=== PATIENT | female | born 1970 | race Caucasian/White ===

== ENCOUNTER → 2018-02-21 10:32 | Outpatient (CLI) | payer OTHER, SELFPAY | PROVIDERS: Family Provider Family Medicine; PCP Family Medicine; Visit Provider Family Medicine | DX: Z12.31 Encounter for screening mammogram for malignant neoplasm of breast (principal) | CPT/HCPCS: 77063; 77067 ==

== ENCOUNTER → 2018-03-30 08:11 | Outpatient (CLI) | payer OTHER, SELFPAY ==
[2018-03-30 12:13] LABS: Absolute Lymphocyte Count 1.96 X10^3/ul (0.83-4.51); Absolute Neutrophil Count 2.8 X10^3/uL (2.0-7.7); Basophil# 0.02 X10^3/uL; Basophil% 0.4 % (0-1); Eosinophil# 0.15 X10^3/uL; Eosinophils% 2.8 % (0-5); Hematocrit 41.8 % (37-47); Hemoglobin 13.8 g/dl (12.0-15.0); Lymphocyte # 1.96 X10^3/ul (4.0); Lymphocyte % 36.4 % (19-41); Mean Corpuscular Hgb 30.3 pg (27.0-32.0); Mean Corpuscular Volume 91.7 fL (81-99); Mean Platelet Vol. 10.6 fl (6.2-12.0); Monocyte# 0.45 X10^3/uL; Monocyte% 8.3 % (0-10); Neutrophil % 51.9 % (47-70); Platelet Count 251 K/mm3 (150-450); RBC Distribution Width CV 12.6 % (11.6-14.6); RBC Distribution Width SD 41.1 fl (35.1-43.9); Red Blood Count 4.56 M/mm3 (4.2-5.4); White Blood Count 5.4 K/mm3 (4.4-11.0)
[2018-03-30 12:33] LABS: POSITIVE COUNT NO; POSITIVE DIFFERENTIAL NO; POSITIVE MORPHOLOGY NO
[2018-03-30 12:44] LABS: Vitamin D,25 Hydroxy 31.6 ng/mL (29.95-100.01)
[2018-03-30 12:47] LABS: ALB/GLOB Ratio 1.1 RATIO (0.9-2.4); AST(SGOT) 28 U/L (15-37); Alanine Aminotransfer ALT/SGPT 54 U/L (13-56); Albumin, Serum 3.9 g/dL (3.2-5.0); Alkaline Phosphatase 84 U/L (45-117); Anion Gap 8 (5-15); BUN 15 mg/dL (7-18); BUN/Creat Ratio 19.7 RATIO (10-20); Chloride 107 mmol/L (98-107); Cholesterol 262 mg/dL (200); Creatinine, Serum 0.76 mg/dL (0.55-1.02); EST Glomerular Filtration Rate 87 mL/min (>60); Est Glom Filt Rate - Afr Amer 105 mL/min (>60); Globulin 3.5 g/dL (2.2-4.2); Glucose 86 mg/dL (74-106); High Density Lipoprotein 46 mg/dL; Potassium 3.9 mmol/L (3.5-5.1); Protein, Total 7.4 g/dL (6.4-8.2); Sodium Level 141 mmol/L (136-145); Triglycerides 126 mg/dL; Very Low Density Lipoprotein 25 mg/dL (5-40)
== END ==
PROVIDERS: Family Provider Family Medicine; PCP Family Medicine; Visit Provider Family Medicine
DX: Z00.00 Encounter for general adult medical examination without abnormal findings (principal); E55.9 Vitamin D deficiency, unspecified; E78.5 Hyperlipidemia, unspecified
CPT/HCPCS: 36415; 80053; 80061; 82306; 85025

== ENCOUNTER → 2018-05-26 09:36 | Outpatient (CLI) | payer OTHER, SELFPAY ==
[2018-05-26 12:11] LABS: Luteinizing Hormone 28.6 mIU/mL
[2018-05-28 09:18] LABS: Testosterone Free 3.5 pg/mL (0.0-4.2)
--- OUTSIDE RECORDS SUMMARY | 2018-07-21 10:48 | XMS RPT_ITS ---
:1970 Author Organization [facility] Care Team Providers Name Role Phone BUD GALICIA, DR. SHAY Attending Unavailable URIEL DODR. [place] Primary Care Unavailable Chelsea Bertrand Attending Unavailable Yasmin Bertrandh Referring Unavailable Douglasel Chelsea Primary Care Unavailable Chelsea Bertrand Attending Unavailable Douglasel, Chelsea Primary Care Unavailable Chelsea Bertrand Attending Unavailable Jerzy, Chelsea Primary Care Unavailable PROBLEMS PROBLEMS DATE TYPE CONDITION / CODE ATTENDING STATUS SOURCE 05/26/2018 Unknown N95.1 - Miedel, Chelsea Active [place] Menopausal and [facility] climacteric Repository states / N95.1(ICD-10) 03/30/2018 Unknown Z00.00 - Miedel, Chelsea Active [place] Encounter for [facility] medical Repository examination without abnormal findings / Z00.00(ICD-10) 03/30/2018 Unknown E55.9 - Vitamin D Miedrl, Chelsea Active [place] deficiency, Community unspecified / Hospital E55.9(ICD-10) Repository 03/30/2018 Unknown E78.5 - Miedel, Chelsea Active [place] Hyperlipidemia, Community unspecified / Hospital E78.5(ICD-10) Repository PROCEDURES PROCEDURES No Procedure Records FoundRESULTS RESULTS FOLLICLE STIMULATING Collected: 05/26/2018 Status: F Source: [place] H[place]ONE 9:37 AM [facility] REPOSITORY TYPE CODE TESTS RESULT OUT OF RANGE REFERENCE UNITS LAB L3100.5125 mIU/mL Normal FSH 63.0 Result Comment: NORMAL REFERENCE RANGES FEMALE FOLLICULAR 2.3 - 12.6 mIU/mL MID-CYCLE PEAK 5.2 - 17.5 mIU/mL LUTEAL 1.7 - 12.9 mIU/mL POST-MENOPAUSAL ON MHT 5.9 - 72.8 mIU/mL NOT ON MHT 12.7 - 132.2 mlU/mL MALE 0.7 - 10.8 mIU/mL NEW TEST METHOD AND REFERENCE RANGES NOVEMBER 16, 2011 Performed By: #### L3100.5125, L3100.5170 #### [facility] [address] [place], [place], [address] LUTEINIZING HORMONE Collected: 05/26/2018 Status: F Source: [place] 9:37 AM [facility] REPOSITORY TYPE CODE TESTS RESULT OUT OF RANGE REFERENCE UNITS LAB L3100.5170 mIU/mL Normal LH 28.6 Result Comment: NORMAL REFERENCE RANGES FEMALE FOLLICULAR 1.9 - 26.2 mIU/mL MID-CYCLE PEAK 22.8 - 76.1 mIU/mL LUTEAL 0.6 - 16.6 mIU/mL POST-MENOPAUSAL ON MHT 1.1 - 52.4 mIU/mL NOT ON MHT 8.6 - 61.8 mIU/mL MALE 1.2 - 10.6 mIU/mL NEW TEST METHOD AND REFERENCE RANGES NOVEMBER 16, 2011 Performed By: #### L3100.5125, L3100.5170 #### [facility] [address] [place], [address] TESTOSTERONE FREE Collected: 05/26/2018 Status: F Source: [place] 9:37 AM [facility] REPOSITORY TYPE CODE TESTS RESULT OUT OF RANGE REFERENCE UNITS LAB L3400.4800 0.0-4.2 pg/mL Normal TEST FR 3.5 [id number] Result Comment: Performed at: BN - [facility] [address] [id number] Lead Radiation Therapist: Zuleyka Vazquez MD, Phone: [phone] Performed By: #### L3400.4800 #### [facility] (refer to report for specific site) refer to report for address and phone number CBC W/DIFF, AUTOMATED Collected: 03/30/2018 Status: F Source: [place] 8:13 AM [facility] REPOSITORY TYPE CODE TESTS RESULT OUT OF RANGE REFERENCE UNITS LAB L100.1000 4.4-11.0 K/mm3 Normal WBC 5.4 LAB L100.1200 4.2-5.4 M/mm3 Normal RBC 4.56 LAB L100.1300 12.0-15.0 g/dl Normal HGB 13.8 LAB L100.1400 37-47 % Normal HCT 41.8 LAB L100.1500 81-99 fL Normal MCV 91.7 LAB L100.1600 27.0-32.0 pg Normal MCH 30.3 LAB L100.1700 32-36 g/gl Normal MCHC 33.0 LAB L100.1810 11.6-14.6 % Normal RDW CV 12.6 LAB L100.1820 35.1-43.9 fl Normal RDW SD 41.1 LAB L100.1900 150-450 K/mm3 Normal PLT 251 LAB L100.2000 6.2-12.0 fl Normal MPV 10.6 LAB L100.2100 47-70 % Normal NEUT% 51.9 LAB L100.2200 19-41 % Normal LY% 36.4 LAB L100.2300 0-10 % Normal MONO% 8.3 LAB L100.2400 0-5 % Normal EO% 2.8 LAB L100.2500 0-1 % Normal BASO% 0.4 LAB L100.2550 0.0-0.9 % Normal IM GRAN % 0.200 Result Comment: IG% - Immature Granulocytes (promyelocytes, myelocytes and metamyelocytes) > 1% indicates that a LEFT SHIFT is Present. LAB L100.2620 2.0-7.7 X10 3/uL Normal Absolute Neut 2.8 LAB L100.2720 0.83-4.51 X10 3/ul Normal Absolute Lymph 1.96 Performed By: #### L100.0100 #### [facility] [address] [place], [address] VITAMIN D,25 HYDROXY Collected: 03/30/2018 Status: F Source: [place] 8:13 AM [facility] REPOSITORY TYPE CODE TESTS RESULT OUT OF RANGE REFERENCE UNITS LAB L506.1000 29.95-100.01 ng/mL Normal Vitamin D 31.6 25-OH Result Comment: Vitamin D 25(OH) Status Range Deficiency <20 ng/mL (50nmol/L) Insuffciency 20 - 30 ng/mL (50 - 75 nmol/L) Sufficiency 30 - 100 ng/mL (75 - 250 nmol/L) Toxicity >100 ng/mL (>250 nmol/L) Performed By: #### L506.1000 #### [facility] [address] [place], [address] COMPREHENSIVE METABOLIC Collected: 03/30/2018 Status: F Source: [place] [facility] 8:13 AM [facility] REPOSITORY TYPE CODE TESTS RESULT OUT OF RANGE REFERENCE UNITS LAB L501.0100 74-106 mg/dL Normal GLU 86 Result Comment: Please note revised GLUCOSE reference range effective 2017. LAB L501.1000 7-18 mg/dL Normal BUN 15 LAB L501.1100 0.55-1.02 mg/dL Normal CREAT,SERUM 0.76 Result Comment: The validity of the calculated GFR AND GFRAA in patients over 70 years has not been determined. Clinical correlation is essential. LAB L501.1110 >60 mL/min Normal EST GFR 87 Result Comment: Non- GFR Calc LAB L501.1115 >60 mL/min Normal EST GFR - AA 105 Result Comment: GFR Calc LAB L501.1300 10-20 RATIO Normal BUN/CRE 19.7 LAB L501.1500 6.4-8.2 g/dL T Normal PROT 7.4 LAB L501.1800 3.2-5.0 g/dL Normal ALB 3.9 LAB L501.1950 2.2-4.2 g/dL Normal GLOB 3.5 LAB L501.2000 0.9-2.4 RATIO Normal A/G 1.1 LAB L501.2200 8.5-10.1 mg/dL CA Normal 9.0 LAB L501.4100 15-37 U/L Normal AST 28 LAB L501.4305 45-117 U/L Normal ALK P 84 LAB L501.4405 13-56 U/L Normal ALT 54 LAB L501.4600 0.20-1.00 mg/dL T Normal BILI 0.50 LAB L501.5300 136-145 mmol/L NA Normal 141 LAB L501.5600 3.5-5.1 mmol/L K Normal 3.9 LAB L501.5900 98-107 mmol/L CL Normal 107 LAB L501.6100 21.0-32.0 mmol/L Normal CO2 26.0 LAB L501.6200 5-15 Normal GAP 8 Performed By: #### L500.4050, L500.4100 #### [facility] [address] [place], [address] LIPID PROFILE Collected: 03/30/2018 Status: F Source: [place] 8:13 AM [facility] REPOSITORY TYPE CODE TESTS RESULT OUT OF RANGE REFERENCE UNITS LAB L501.4900 200 mg/dL High CHOL 262 Result Comment: <200 mg/dL Desirable 200-240 mg/dL Borderline >240 mg/dL High Risk LAB L501.5000 mg/dL Normal TRIG 126 Result Comment: The drugs N-Acetylcysteine and Metamizole may falsely depress this assay. Serum Triglycerides Reference Interval Normal <150 mg/dL Borderline high 150 - 199 mg/dL High 200 - 499 mg/dL Very High > or = 500 mg/dL LAB L501.6400 mg/dL Normal HDL 46 Result Comment: The drugs N-Acetylcysteine and Metamizole may falsely depress this assay. Reference Range HDL <40 mg/dL Low HDL Cholesterol HDL >or= 60 mg/dL High HDL Cholesterol LAB L501.6500 0-130 mg/dL High LDL 191 LAB L501.6600 5-40 mg/dL Normal VLDL 25 Performed By: #### L500.4050, L500.4100 #### [facility] [address] [facility] [place], [place], [address] SCREENING MAMM (CAD), Observed: 02/21/2018 Status: F Source: [place] BIL 10:34 AM [facility] REPOSITORY [facility] Imaging Services [address] [place] [address] SCREENING MAMM (CAD), BILAT MR#: [id number] Acct: [id number] Name: MYLES MOSLEY Rep #: [id number] : 1970 F 47 From: Evin Alvarado MD PCP: Chelsea Bertrand MD Status: REG CL Study: SCREENING MAMM (CAD), BILAT Date of Exam: 02/21/18 Exam# [id number] Ordering Dr: Chelsea Bertrand MD MAMMOGRAPHY - BILATERAL SCREENING REASON FOR EXAM: Female, 47 years old. Routine annual screening examination. PERTINENT HISTORY: Non-contributory. TECHNIQUE: Digital bilateral breast yue (3D mammographic acquisition) in the CC and MLO projections. 2-D mediolateral oblique (MLO) and craniocaudad (CC) views of both breasts were obtained. CAD: Full Field Digital Mammography with Computer Added Detection was performed. COMPARISON: Comparison is made with prior study dated May 08, 2016 and December 10, 2014. FINDINGS: Breast Composition: The breasts are heterogeneously dense, which may obscure small masses. There are no dominant masses or suspicious calcifications. Stable benign-appearing bilateral axillary lymph nodes. No other significant abnormalities are identified. There has been no significant change since the prior study. BI/SCREENING MAMM (CAD), BILAT IMPRESSION: Stable bilateral screening mammogram. Yearly follow-up mammogram recommended. (A) ASSESSMENT CATEGORY: BIRADS Category 2: Benign. A letter regarding these results will be sent to the patient by the facility within 30 days. Approximately 10% of breast cancers are not detected by mammography. A normal mammogram should not delay biopsy of a clinically suspicious abnormality. [id number] Electronically Signed: Evin Alvarado MD at 11:33 EDT Tel [phone], Service support , CC: Chelsea Bertrand MD Psychiatric Security Nurse: Signed XR FOOT MINIMUM 3 Observed: 12/28/2017 Status: F Source: [facility] VIEWS LEFT 8:50 AM [facility] REPOSITORY ORIGINAL XR FOOT MINIMUM 3 VIEWS LEFT CLINICAL INDICATION: pain COMPARISON: None FINDINGS: There is mild deformity of the 4th metatarsal neck with an adjacent small bony density at the lateral aspect of the 4th metatarsal neck. This is probably from remote trauma, but clinical corre lation recommended to exclude an acute injury. Joint spaces are normally maintained. No soft tissue swelling is visible. IMPRESSION: Deformity at the 4th metatarsal neck appears likely be chronic, but clinical correlation is advised to exclude an acute injury. Interpreted By: Kirt Ulloa MD Preliminary Report By: Kirt Ulloa MD Electronically Signed By: Kirt Ulloa MD Dictated Date: 12/28/2017 8:54:59 AM Prelim Date: 12/28/2017 8:54:59 AM Sign Date: 12/28/2017 8:56:49 AM ALLERGIES ALLERGIES No Allergies Records FoundENCOUNTERS ENCOUNTERS ADMIT/DISCHARGE ACCOUNT NUMBER ADMITTING ENCOUNTER LOCATION SOURCE CLASS 05/26/2018 [id number] [facility] ding:BFHLAB Repository 03/30/2018 [id number] [facility] ding:BFHLAB Repository 02/21/2018 [id number] [facility] ding:OPBI Repository 12/28/2017/12/29/19 [id number] Emergency BBuilding:ER [place] [address] [facility] Repository PAYERS PAYERS ENCOUNTER GUARANTOR PAYER SUBSCRIBER SOURCE 05/26/2018 [facility]LES M [id number]:MEDICAL CRABTREEDOB: [id number] Number: Repository [place] [id number]: [id number] Date:[id number] BOX (CS) [address] [address]KD: 05/26/2018 Secondary NOT GIVENUNK [place] Insurance:SELF PAY [facility] Number: Effective Repository Date:2018-05-26 03/30/2018 MYLES Estrada Primary MYLES [place] [id number] Insurance:MEDICAL CRABTREEDOB: [facility] [id number], Number: Repository [place] [id number]: [id number] Date:[id number] BOX () [address] [place] [address]NM: 03/30/2018 Secondary NOT GIVENUNK [place] Insurance:SELF PAY [facility] Number: Effective Repository Date:2018-03-30 02/21/2018 MYLES M Primary MYLES Estrada [place] [id number] Insurance:MEDICAL CRABTREEDOB: [facility] [id number], Number: Repository [place] [id number]: [id number] Date:0712-59-83II BOX () [address] [place] [phone]: 02/21/2018 Secondary NOT GIVENUNK [place] Insurance:SELF PAY [facility] Number: Effective Repository Date:2018-02-16 12/28/2017 MYLES Estrada Primary MYLES [facility] CRABTREEDOB: Insurance:MEDICAL CRABTREEDOB: [facility] [address] [id number] Repository MARKET Number: [address] [place], [place] [id number] [place], [place] [address]Fzi: ([phone]) Date:2017-12-28 [id number]: () [id number] [phone] Name:HAIR MARTIN ()Tel: 000 [address], [place] [phone] (WP) [phone]:
== END ==
PROVIDERS: Family Provider Family Medicine; PCP Family Medicine; Visit Provider Family Medicine
DX: N95.1 Menopausal and female climacteric states (principal)
CPT/HCPCS: 36415; 83001; 83002; 84402

== ENCOUNTER → 2019-04-11 11:45 | Outpatient (CLI) | payer OTHER, SELFPAY ==
--- NOTE | 2019-04-11 11:49 | BI_ITS ---
MAMMOGRAPHY - BILATERAL SCREENING REASON FOR EXAM: Female, 48 years old. Routine annual screening examination. PERTINENT HISTORY: Non-contributory. TECHNIQUE: Digital bilateral breast jaye (3D mammographic acquisition) in the CC and MLO projections. 2-D mediolateral oblique (MLO) and craniocaudad (CC) views of both breasts were obtained. CAD: Full Field Digital Mammography with Computer Added Detection was performed. COMPARISON: Comparison is made with prior study dated February 21, 2018 and May 08, 2016. FINDINGS: Breast Composition: The breasts are heterogeneously dense, which may obscure small masses. There are no dominant masses or suspicious calcifications. Stable benign-appearing bilateral axillary. No other significant abnormalities are identified. There has been no significant change since the prior study. BI/SCREEN MAMM (CAD) W/JAYE BILAT IMPRESSION: Stable bilateral screening mammogram. Yearly follow-up mammogram recommended. (A) ASSESSMENT CATEGORY: BIRADS Category 2: Benign. A letter regarding these results will be sent to the patient by the facility within 30 days. Approximately 10% of breast cancers are not detected by mammography. A normal mammogram should not delay biopsy of a clinically suspicious abnormality. [id number] Electronically Signed: Evin Alvarado, at 14:11 EDT , Service support ,
== END ==
PROVIDERS: Family Provider Family Medicine; PCP Family Medicine; Referring Provider Family Medicine; Visit Provider Family Medicine
DX: Z12.31 Encounter for screening mammogram for malignant neoplasm of breast (principal)
CPT/HCPCS: 77063; 77067

== ENCOUNTER → 2020-04-19 | Outpatient (CLI) | payer OTHER, SELFPAY ==
[2020-04-27 14:31] LABS: HPV APTIMA, High Risk Negative (Negative)
== END | disposition home or self-care (01) ==
LOC: LABSPEC 14:29
PROVIDERS: PCP Family Medicine; Visit Provider Family Medicine
DX: Z12.4 Encounter for screening for malignant neoplasm of cervix (principal)
CPT/HCPCS: 87624; 88175; G0145

== ENCOUNTER → 2020-11-26 13:39 | Outpatient (CLI) | payer OTHER, SELFPAY ==
--- NOTE | 2020-11-26 13:41 | BI_ITS ---
MAMMOGRAPHY - BILATERAL SCREENING REASON FOR EXAM: Female, 49 years old. Routine annual screening examination. PERTINENT HISTORY: Non-contributory. TECHNIQUE: Digital bilateral breast jaye (3D mammographic acquisition) in the CC and MLO projections. 2-D mediolateral oblique (MLO) and craniocaudad (CC) views of both breasts were obtained. CAD: Full Field Digital Mammography with Computer Added Detection was performed. COMPARISON: Comparison is made with prior study dated 04/11/2019 and 02/21/2018. FINDINGS: Breast Composition: The breasts are heterogeneously dense, which may obscure small masses. There are no dominant masses or suspicious calcifications. Stable benign-appearing bilateral axillary lymph nodes. No other significant abnormalities are identified. There has been no significant change since the prior study. BI/SCRN MAMM (CAD)W/JAYE BILAT IMPRESSION: Stable bilateral screening mammogram. Yearly follow-up mammogram recommended. (A) ASSESSMENT CATEGORY: BIRADS Category 2: Benign. A letter regarding these results will be sent to the patient by the facility within 30 days. Approximately 10% of breast cancers are not detected by mammography. A normal mammogram should not delay biopsy of a clinically suspicious abnormality. [id number] Electronically Signed: Evin Alvarado MD at 8:27 EDT , Service support ,
== END ==
PROVIDERS: PCP Family Medicine; Referring Provider Family Medicine; Visit Provider Family Medicine
DX: Z12.31 Encounter for screening mammogram for malignant neoplasm of breast (principal)
CPT/HCPCS: 77063; 77067

== ENCOUNTER → 2022-01-29 | Outpatient (CLI) | payer OTHER, SELFPAY ==
--- NOTE | 2022-01-29 15:54 | BI_ITS ---
MAMMOGRAPHY - BILATERAL SCREENING REASON FOR EXAM: Female, 51 years old. Routine annual screening examination. PERTINENT HISTORY: Non-contributory. TECHNIQUE: Digital bilateral breast jaye (3D mammographic acquisition) in the CC and MLO projections. 2-D mediolateral oblique (MLO) and craniocaudad (CC) views of both breasts were obtained. CAD: Full Field Digital Mammography with Computer Added Detection was performed. COMPARISON: Comparison is made with prior study of 11/26/2020 and 04/11/2019. FINDINGS: Breast Composition: The breasts are heterogeneously dense, which may obscure small masses. There are no dominant masses or suspicious calcifications. Stable small benign-appearing bilateral axillary lymph nodes. No other significant abnormalities are identified. There has been no significant change since the prior study. BI/SCRN MAMM (CAD)W/JAYE BILAT IMPRESSION: Stable bilateral screening mammogram. Yearly follow-up mammogram recommended. (A) ASSESSMENT CATEGORY: BIRADS Category 2: Benign. A letter regarding these results will be sent to the patient by the facility within 30 days. Approximately 10% of breast cancers are not detected by mammography. A normal mammogram should not delay biopsy of a clinically suspicious abnormality. [id number] Electronically Signed: Evin Alvarado MD at 8:44 EDT ,
== END | disposition home or self-care (01) ==
LOC: OPBI 15:53
PROVIDERS: PCP Family Medicine; Referring Provider Family Medicine; Visit Provider Family Medicine
DX: Z12.31 Encounter for screening mammogram for malignant neoplasm of breast (principal)
CPT/HCPCS: 77063; 77067

== ENCOUNTER → 2023-05-18 | Outpatient (CLI) | payer OTHER, SELFPAY ==
--- NOTE | 2023-05-18 07:26 | BI_ITS ---
MAMMOGRAPHY - BILATERAL SCREENING REASON FOR EXAM: Female, 52 years old. Routine annual screening examination. PERTINENT HISTORY: Non-contributory. TECHNIQUE: Digital bilateral breast jaye (3D mammographic acquisition) in the CC and MLO projections. 2-D mediolateral oblique (MLO) and craniocaudad (CC) views of both breasts were obtained. CAD: Full Field Digital Mammography with Computer Added Detection was performed. COMPARISON: Comparison is made with prior study dated January 29, 2022 and November 26, 2020. FINDINGS: Breast Composition: The breasts are heterogeneously dense, which may obscure small masses. There are no dominant masses or suspicious calcifications. Stable small benign-appearing bilateral axillary lymph nodes. No other significant abnormalities are identified. There has been no significant change since the prior study. BI/SCRN MAMM (CAD)W/JAYE BILAT IMPRESSION: Stable bilateral screening mammogram. Yearly follow-up mammogram recommended. (A) ASSESSMENT CATEGORY: BIRADS Category 2: Benign. A letter regarding these results will be sent to the patient by the facility within 30 days. Approximately 10% of breast cancers are not detected by mammography. A normal mammogram should not delay biopsy of a clinically suspicious abnormality. [id number] Electronically Signed: Evin Alvarado MD at 10:59 EST ,
== END | disposition home or self-care (01) ==
LOC: OPBI 07:24
PROVIDERS: PCP Family Medicine; Referring Provider Family Medicine; Visit Provider Family Medicine
DX: Z12.31 Encounter for screening mammogram for malignant neoplasm of breast (principal)
CPT/HCPCS: 77063; 77067

== ENCOUNTER → 2023-07-20 | Outpatient (CLI) | payer OTHER, SELFPAY ==
--- NOTE | 2023-07-20 13:48 | MRI_ITS ---
HISTORY: Possible pituitary adenoma. TECHNIQUE: Multiplanar and multisequence MR images of the brain and sella were obtained before and after the intravenous demonstration of 15 mL Clariscan. 340 images. COMPARISON: None. FINDINGS: SELLA/SUPRASELLAR REGION: 1.6 x 2.6 x 2.4 cm circumscribed, T1 isointense, mildly T2 FLAIR hyperintense, homogeneously and avidly enhancing suprasellar mass mildly compressing the separately enhancing pituitary gland, right greater than left involvement and compression of the optic chiasm, and extension along the posterior planum sphenoidale with an enhancing dural based tail. Partial encasement of the suprasellar cavernous internal carotid arteries. BRAIN PARENCHYMA: No significant signal abnormality or other enhancing lesion in the brain parenchyma. No abnormal focus of restricted diffusion. No acute intracranial hemorrhage identified. CSF SPACES: Cerebral ventricles, cortical sulci, and other extra-axial CSF spaces otherwise within normal limits in size for age. No significant midline shift or other mass effect.No extra-axial fluid collection. VASCULAR SYSTEM: Major intracranial flow voids are maintained. PARANASAL SINUSES AND MASTOID AIR CELLS: Mild mucosal thickening in the maxillary sinuses and ethmoid air cells. ORBITS: Symmetric contents. MRI/Brain W/WO Contrast IMPRESSION: 2.6 cm enhancing suprasellar mass compressing the optic chiasm and pituitary gland with an enhancing dural tail along the posterior planum sphenoidale, favoring meningioma over other neoplasm such as pituitary macroadenoma or craniopharyngioma. Electronically Signed: Kamila Pedro MD at 15:28 EST ,
== END | disposition home or self-care (01) ==
LOC: MRI 13:41
PROVIDERS: PCP Family Medicine; Referring Provider Family Medicine; Visit Provider Family Medicine
DX: D35.2 Benign neoplasm of pituitary gland (principal); H53.131 Sudden visual loss, right eye; G43.119 Migraine with aura, intractable, without status migrainosus
CPT/HCPCS: 70553; A9575

== ENCOUNTER → 2023-10-05 | Outpatient (CLI) | payer OTHER, SELFPAY ==
[2023-10-05 13:54] LABS: Anion Gap 4 (5-15); BUN 11 mg/dL (7-18); BUN/Creat Ratio 12.9 RATIO (10-20); Calcium,Total 9.6 mg/dL (8.5-10.1); Chloride 107 mmol/L (98-107); Creatinine, Serum 0.85 mg/dL (0.55-1.02); EST Glomerular Filtration Rate 75 mL/min (>60); Est Glom Filt Rate - Afr Amer 90 mL/min (>60); Glucose 88 mg/dL (74-106); Potassium 3.7 mmol/L (3.5-5.1); Sodium Level 140 mmol/L (136-145)
[2023-10-05 15:41] LABS: T4 Free Direct 0.67 ng/dL (0.76-1.46)
== END | disposition home or self-care (01) ==
LOC: LAB 10:53
PROVIDERS: PCP Family Medicine
DX: D32.9 Benign neoplasm of meninges, unspecified (principal)
CPT/HCPCS: 36415; 80048; 82533; 84439

== ENCOUNTER 2023-10-16 02:55 | Emergency (ER) | payer OTHER, SELFPAY ==
[2023-10-16 02:56] VITALS: PULSE 85; RESP 16; TEMP 36.8; O2SAT 97; BMI 25.5
--- NOTE | 2023-10-16 03:32 | EX.ED.DYSGE1 ---
HPI History of Present Illness Chief Complaint: Wound Check Informant: patient and spouse/S.O. Narrative Narrative: Here with wound check concerns of graft failure. 17 days postop pituitary tumor removal with nasal approach at [facility]. She had vision issues of the right eye surgery. She has peripheral vision loss. Reports of the nasal packing seen the ENT 3 days ago was removed. Was allowed to blow. She is using nasal saline rinses, she blew her nose this evening tissue structure came for the left side that had a concern. There is no bleeding. No leakage of fluid. Also would like her right thigh graft area evaluated. Repeat reports the tumor was benign. [facility] Medical History Hyperlipidemia Meningioma determined by biopsy of brain Optic nerve edema Fgels-Hoxpayyft-Bypap (WPW) syndrome Home Medications cyclobenzaprine 10 mg tablet 10 mg PO QHS 10/16/23 [History Last Taken Unknown] estradiol 1 mg tablet 1 mg PO DAILY 10/16/23 [History Last Taken Unknown] progesterone micronized 100 mg capsule 100 mg PO DAILY 10/16/23 [History Last Taken Unknown] rosuvastatin 5 mg tablet 5 mg PO QHS 10/16/23 [History Last Taken Unknown] Allergy/AdvReac Type Severity Reaction Status Date / Time No Known Allergies Allergy Verified 10/16/23 03:03 Social History Smoking Status: Former smoker ROS ROS ED Constitutional Constitutional ED: Denies chills, fever(s) or sweats Eyes Eyes: Denies change in vision ENT ENT ED: Reports other Details: No nasal bleeding or leakage of fluid. ; Denies dysphagia or sore throat Cardiovascular Cardiovascular: Denies chest pain, leg edema, palpitations or racing heartbeat Respiratory/Chest Respiratory/Chest: Denies cough, dyspnea or dyspnea on exertion Gastrointestinal Gastrointestinal: Denies abdominal pain, diarrhea, nausea or vomiting Genitourinary Genitourinary ED: Denies dysuria, hematuria or urinary frequency Musculoskeletal Musculoskeletal: Denies back pain, extremity pain or neck pain Integumentary Denies rash or wounds Neurologic Neurologic: Denies headache(s), paresthesias or weakness EXAM Physical Exam Const Vital Signs: 10/16/23 02:56 04/20/24 03:37 Temperature 98.2 F 97.6 F L Temperature Source Oral Pulse Rate 85 81 Respiratory Rate 16 14 Blood Pressure 121/80 H Blood Pressure Mean 93 Pulse Ox 97 97 Oxygen Delivery Method Room Air Positive well nourished and well developed General Appearance ED: well developed and NAD HEENT Reports moist mucous membranes HEENT Narrative: Right nare: No bleeding there was dry secretions along the septum. Left nare: No bleeding noted no leakage fluid, unable to visualize area of surgical entrance or graft region. normocephalic and atraumatic Eyes PERRL, EOMs intact bilaterally and conjunctivae normal General Eye ED: Yes normal appearance of both eyes Neck no lymphadenopathy and supple General: Negative for tenderness Chest Wall Chest: Negative for tenderness Resp normal respiratory effort and normal air movement Effort and Inspection: symmetric chest movement; Negative for respiratory distress Cardio regular rate, regular rhythm and no murmurs Peripheral Pulses: pulses 2+ throughout GI normal to inspection, nondistended, normoactive bowel sounds and non-tender Palpation: Negative for guarding or rebound tenderness present Back/Spine no CVA tenderness and no thoracic nor lumbar tenderness Extremity normal to inspection General Extremety ED: Negative for edema or tenderness General Extremity: Negative for edema Neuro oriented x3 and no sensory deficits noted Sensorium / Orientation: awake and alert Skin no rashes or lesions noted Skin Narrative: Right thigh: Mid lateral 3 inch area linear scab there is no surrounding erythema no induration no hematoma. MDM MDM MDM Narrative Medical decision making narrative: Interventions / MDM: Differential diagnosis: Postop wound check Diagnosis considered but do not suspect: N/A My EKG interpretation: N/A Imaging independently reviewed and interpreted by myself: N/A External documents reviewed: N/A Test considered but not ordered:N/A ED course: There is no active bleeding at the nare. She has a tissue like structure that was evaluated on the tissue. Easily torn more jellylike structure. Unclear residual packing. However reassured there is no bleeding or leakage of fluid at this time. Right thigh wound is healing appropriately. She will follow-up with her surgeons as outpatient. All questions were answered. Re-evaluation: stable Disposition discussed with patient/family/significant other: Patient and significant other Case discussed with consulting clinician: N/A This note was generated with [employer] software. It may contain incorrect words, spelling, and punctuation that were not noted in checking the note before signing. Discharge Plan Triage Chief Complaint: Wound Check ED Provider: Carloz Rosa Dx/Rx/DC Orders Clinical Impression: Postop check, History of pituitary tumor Instructions: ED Post Op Wound Check, General Prescriptions: No Action cyclobenzaprine 10 mg tablet 10 mg PO QHS estradiol 1 mg tablet 1 mg PO DAILY progesterone micronized 100 mg capsule 100 mg PO DAILY rosuvastatin 5 mg tablet 5 mg PO QHS Primary Care Provider: Chelsea Bertrand Referrals: Chelsea Bertrand MD [Primary Care Provider] - Activity Restrictions/Additional Instructions: No active bleeding or fluid leakage noted. Avoid blowing at this time through the left nare. Follow-up with your surgeons. Disposition Disposition: Home, Self Care Discharge Date/Time: 10/16/23 03:37
[2023-10-16 03:37] VITALS: BP 121/80; PULSE 81; RESP 14; TEMP 36.4; O2SAT 97
== END 2023-10-16 03:37 | disposition home or self-care (01) ==
PROVIDERS: Emergency Provider Emergency Medicine; PCP Family Medicine; Visit Provider Emergency Medicine
DX: Z48.3 Aftercare following surgery for neoplasm (principal); H54.7 Unspecified visual loss; Z87.891 Personal history of nicotine dependence; E78.5 Hyperlipidemia, unspecified; Z79.899 Other long term (current) drug therapy; Z85.858 Personal history of malignant neoplasm of other endocrine glands
CPT/HCPCS: 99282

== ENCOUNTER → 2023-10-18 | Outpatient (CLI) | payer OTHER, SELFPAY ==
--- NOTE | 2023-11-01 15:46 | MRI_ITS ---
INDICATION: PRIMARY NEOPLASM/METASTASIS/POST OP F/U EXAMINATION: MRI - MR Brain WO/W Contrast TECHNIQUE: MRI examination of brain obtained with standard protocol including multiplanar multiecho imaging. Pre and Postcontrast imaging obtained. IV Contrast Dosage and Agent: 14 mL Clariscan COMPARISON: Previous/recent preoperative imaging is not available for comparison. FINDINGS: HEMISPHERES, CEREBELLUM AND BRAINSTEM: 1. There are postoperative changes consistent with transsphenoidal hypophysectomy. Persistent soft tissue within the sella turcica with homogeneous contrast enhancement. Normal appearance of the infundibulum. 2. The optic chiasm, the visualized optic nerves, and optic tracts have normal appearance. 3. The cerebral parenchyma, ventricular system, subarachnoid spaces have normal configuration and density. There is a normal gyral pattern. There is normal hough/white differentiation. No midline shift.. 4. Minimal scattered white matter signal hyperintensities, pattern is nonspecific. 5. No areas fluid restriction or acute change. No areas of abnormal intraparenchymal contrast enhancement. 6. No intraparenchymal mass, hemorrhage, or acute territorial infarct. 7. The cerebellum, brainstem, basilar and suprasellar cisterns have normal appearance. No Chiari malformation. PITUITARY: Infundibulum and pituitary have normal configuration. Midline structures appear normal. CSF SPACES: Appropriate for age. No hydrocephalus. Basal cisterns are patent. VESSELS: 1. There are normal flow voids noted in the great vessels at the skull base ORBITS AND PARANASAL SINUSES: 1. Both globes, extraocular muscles, optic nerves and retrobulbar fat appear unremarkable. 2. Significant mucosal thickening in the maxillary antra, and postoperative changes involving the ethmoid sinuses, and sphenoid sinuses consistent with transsphenoidal approach the sella. BONY ELEMENTS: Bony elements of the cranial vault, facial skeleton and skull base have normal appearance. SCALP AND SOFT TISSUES: Normal appearance of the soft tissues of the scalp and the visualized face OTHER: None MRI/Brain W/WO Contrast IMPRESSION: 1. Postoperative changes consistent with transsphenoidal hypophysectomy. There is mucosal thickening within the paranasal sinuses. 2. Diffuse soft tissue enhancement within the sella. No distinct masses noted. The infundibulum, floor of the 3rd ventricle, optic nerves, optic chiasm and visualized optic tracts have normal appearance. 3. Minimal scattered white matter signal hyperintensities, pattern is nonspecific. 4. No intraparenchymal mass, hemorrhage, or acute territorial infarct or areas of abnormal parenchymal enhancement. Electronically Signed: Wesley Rodrigues MD at 1:15 EDT ,
== END | disposition home or self-care (01) ==
PROVIDERS: PCP Family Medicine
DX: D32.9 Benign neoplasm of meninges, unspecified (principal)
CPT/HCPCS: 70553; A9575

== ENCOUNTER → 2023-11-25 | Outpatient (CLI) | payer OTHER, SELFPAY ==
[2023-11-25 18:00] LABS: Estradiol 21.9 pg/mL; Follicle Stimulating Hormone 8.8 mIU/mL; Luteinizing Hormone 4.2 mIU/mL; Prolactin 19.7 ng/mL; T4 Total, Thyroxin 5.8 ug/dL (4.8-13.9); Thyroid Stim Hormone (TSH) 1.71 uIU/mL (0.358-3.74)
[2023-11-27 04:08] LABS: PROGESTERONE 1.1 ng/mL (.)
[2023-11-30 07:08] LABS: Adrenocorticotropic Hormone 7.7 pg/mL (7.2-63.3); Growth Hormone 0.1 ng/mL (0.0-10.0); Insulin Level 80.7 uIU/mL (2.6-24.9)
== END | disposition home or self-care (01) ==
LOC: LAB 16:09
PROVIDERS: PCP Family Medicine
DX: D32.9 Benign neoplasm of meninges, unspecified (principal)
CPT/HCPCS: 36415; 82024; 82533; 82627; 82670; 83001; 83002; 83003; 83525; 84144; 84146; 84436; 84439; 84443; 82626

== ENCOUNTER → 2024-01-18 | Outpatient (CLI) | payer OTHER, SELFPAY ==
[2024-01-18 09:10] LABS: AST(SGOT) 23 U/L (15-37); Alanine Aminotransfer ALT/SGPT 34 U/L (13-56); Albumin, Serum 3.6 g/dL (3.2-5.0); Alkaline Phosphatase 89 U/L (45-117); Bilirubin, Direct 0.08 mg/dL (0.00-0.30); Cholesterol 223 mg/dL (200); Globulin 3.6 g/dL (2.2-4.2); High Density Lipoprotein 39 mg/dL; Protein, Total 7.2 g/dL (6.4-8.2); Triglycerides 240 mg/dL; Very Low Density Lipoprotein 48 mg/dL (5-40)
== END | disposition home or self-care (01) ==
PROVIDERS: PCP Family Medicine; Referring Provider Family Medicine; Visit Provider Family Medicine
DX: E78.5 Hyperlipidemia, unspecified (principal)
CPT/HCPCS: 36415; 80061; 80076

== ENCOUNTER → 2024-07-19 | Outpatient (CLI) | payer OTHER, SELFPAY ==
--- NOTE | 2024-07-19 07:11 | BI_ITS ---
MAMMOGRAPHY - BILATERAL SCREENING REASON FOR EXAM: Female, 53 years old. Routine annual screening examination. PERTINENT HISTORY: Non-contributory. TECHNIQUE: Digital bilateral breast jaye (3D mammographic acquisition) in the CC and MLO projections. 2-D mediolateral oblique (MLO) and craniocaudad (CC) views of both breasts were obtained. CAD: Full Field Digital Mammography with Computer Added Detection was performed. COMPARISON: Comparison is made with prior study dated May 18, 2023 and January 29, 2022. FINDINGS: Breast Composition: The breasts are heterogeneously dense, which may obscure small masses. There are no dominant masses or suspicious calcifications. Stable bilateral axillary lymph nodes. No other significant abnormalities are identified. There has been no significant change since the prior study. BI/SCRN MAMM (CAD)W/JAYE BILAT IMPRESSION: Stable bilateral screening mammogram. Yearly follow-up mammogram recommended. (A) ASSESSMENT CATEGORY: BIRADS Category 2: Benign. A letter regarding these results will be sent to the patient by the facility within 30 days. Approximately 10% of breast cancers are not detected by mammography. A normal mammogram should not delay biopsy of a clinically suspicious abnormality. [id number] Electronically Signed: Evin Alvarado MD at 10:40 EST ,
== END | disposition home or self-care (01) ==
LOC: OPBI 07:08
PROVIDERS: PCP Family Medicine; Referring Provider Family Medicine; Visit Provider Family Medicine
DX: Z12.31 Encounter for screening mammogram for malignant neoplasm of breast (principal)
CPT/HCPCS: 77063; 77067

== ENCOUNTER → 2024-08-18 | Outpatient (CLI) | payer OTHER, SELFPAY ==
--- NOTE | 2024-08-18 16:44 | RAD_ITS ---
PROCEDURE: LEFT FOOT, THREE VIEWS REASON FOR EXAM: Foot pain. TECHNIQUE: Three view(s) of left foot COMPARISON: No relevant prior. FINDINGS: No fractures, dislocations, or subluxations. Small ossicle at the anterior aspect of the talonavicular joint, best seen on the lateral projection. Second small ossicle is seen at the anterior aspect of the distal tibial metaphysis. Soft tissues are unremarkable. RAD/Foot min 3 Views IMPRESSION: Small ossicles at the anterior aspects of the talonavicular joint and distal ti london may be due to remote trauma. Correlation with point tenderness recommended. No other significant osseous abnormalities. Reading Location: [facility]
== END | disposition home or self-care (01) ==
LOC: RAD 16:41
PROVIDERS: PCP Family Medicine; Referring Provider Family Medicine; Visit Provider Family Medicine
DX: M79.672 Pain in left foot (principal); M79.89 Other specified soft tissue disorders
CPT/HCPCS: 73630

== ENCOUNTER 2024-08-23 08:00 | Outpatient (RCR) | payer OTHER, SELFPAY ==
--- NOTE | 2024-08-09 18:50 | HP.PTEVAL_ITS ---
Patient's Visit Information Visit Information Visit Information: MYLES MOSLEY is a 53 year old F referred to Physical Therapy by Dr. Chelsea Bertrand MD with a diagnosis of dizziness and giddiness. Date of Evaluation: 08/09/24 Physical Therapist: GURVINDER Sue Visit Plan Frequency: 1x/Week Duration: 6 Weeks Plan: Pt to go home and work on smooth pursuit vertical 1 min X 3 3X/ day and then walk around halls at work with rollator or rolling cart to try and habituate Subjective Subjective: Pt had brain surgery September 29, 2023 and she has some R eye peripheral vision lost from the tumor that was taken out. She gets dizzy walking through the grocery store pushing a cart but not using the basket. At time she feels that she is moving to the Right but she is not. She also feels that her head is too heavy for her neck. She feels fine sitting but does get the heaviness in sitting. It is not when it is really busy. She went back to the gym a month ago and nothing bothers her. She gets no dizziness when roll over in bed. She gets no dizziness when she picks up something from the floor and not any worse when she is more tired. All this dizziness started after surgery. No neck pain . She feels like her head will flop down. She gets no unusual DUMONT. No arm weakness. She has no trouble reading or scrolling on the computer. She does feel a little weaker on the R side if she compares R VS L. No motion sickness. 20 years ago she had an ear infection and had vertigo and that is not it. Objective Objective: Gait: normal gait pattern FGA: 29 CATSIB: 120/120 VOR: smooth pursuit vertical X 1 min (R eye was a little slower) and no dizziness Pt pushed a rollator and instantly got increase dizziness feeling down into her whole body Pushed a SLED and she did not get any dizziness She did not get dizzy on the rocker board, up and down stairs, head turns Balance/Special Test Scores Functional Gait Assessment Score: 29 % Disability: 3.3400 CATSIB Score (Max score 120 seconds): 120 Dizziness Score: 22 Goals Goal 1:: Abolish dizziness with walking with a grocery cart Goal 2:: Be able to complete 3 X 60 seconds of vertical smooth pursuit without feeling of tiredness in R eye Rehabilitation Potential Rehabilitation Potential: Good Anticipated Interventions Patient/Client Instruction: Educate patient on: Condition For the Purpose of:: To improve muscle performance and motor function, To improve ability to perform ADL's, To increase tolerance to activity/condition/position, To decrease level of supervision to perform tasks, To improve gait and locomotor functions, To improve balance and To improve safety with gait Therapeutic Exercise to Include: Strength training, Endurance training, Balance training, Gait and locomotor training and Neuromotor development For the Purpose of:: To improve muscle performance and motor function, To improve ability to perform ADL's, To increase tolerance to activit y/condition/position, To improve performance and independence with ADL's, To improve ability of physical actions for home/community/work/leisure and To improve gait and locomotor functions Text: Thank you for the opportunity to evaluate your patient. For Medicare and Medicare HMO plans, please review the plan of care and approve it. It will need to be FAXED BACK to us at [phone] for Medicare purposes. For Medicare only, by signing this I certify the plan of care. Please let me know if there are questions or concerns regarding this plan of care. Physician Signature: Date:
--- NOTE | 2024-08-23 08:58 | HP.PTDCSUM ---
Discharge Summary D/C summary: It has been my pleasure to treat MYLES MOSLEY referred by Dr. Chelsea Bertrand MD, with the diagnosis of dizziness and giddiness for a total of 2 visit(s). Discharge Date: 08/23/24 Please see the following information for a summary of their discharge status. Subjective Subjective: She has been doing exercises every other day. Today she feels that her vision is blocked due to allergies. She is also having some teeth issues on the R side and her sinus cavity is dropped on the R side. She has an ENT appt soon. She has been trying to walk in the grocery store more with a cart. Objective Objective/Function: Vertical and horizontal smooth pursuit X 1 min with no dizziness. She did have a little more difficulty with decreased ability to track on the R side with vertical smooth pursuit but able to correct on her own. Sitting head and eyes move together horizontal X 1 min with dizziness. Goals Goal 1:: Abolish dizziness with walking with a grocery cart Goal 2:: Be able to complete 3 X 60 seconds of vertical smooth pursuit without feeling of tiredness in R eye Goal Progress: Goal Met Plan Plan: DC PT Pt will continue to use the grocery cart at the store for habituation. D/C Information Discharge Comments: DCPT d/c sentence: If there are questions or concerns regarding this patient's physical therapy, please feel free to call me at [phone]. Thank you for the referral of this patient. Sincerely, Tasneem Myers, MPT Balance/Gait/Functional tests Balance/Special Test Scores Functional Gait Assessment Score: 29 % Disability: 3.3400 CATSIB Score (Max score 120 seconds): 120 Dizziness Score: 22
== END 2024-08-23 09:52 | disposition home or self-care (01) ==
LOC: PT 08:00
PROVIDERS: PCP Family Medicine; Referring Provider Family Medicine; Visit Provider Family Medicine
DX: R42 Dizziness and giddiness (principal)
CPT/HCPCS: 97161; 97530

== ENCOUNTER → 2024-11-14 | Outpatient (CLI) | payer OTHER, SELFPAY ==
--- NOTE | 2024-11-14 08:30 | MRI_ITS ---
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 TECHNIQUE: Multiplanar, multisequence MR images of the brain were obtained without and with 15 cc Clariscan contrast gadolinium contrast material. FINDINGS: No intracranial hemorrhage, mass, mass effect, midline shift or pathologic extra- axial fluid collection. No hydrocephalus. There is minimal bilateral white matter disease, similar to the prior. No areas of restricted diffusion to suggest acute ischemia or infarction. No gradient signal blooming artifacts are identified. No cerebellar tonsillar ectopia. There is homogeneous enhancement in the surgical bed at the pituitary fossa with no significant interval change or evidence of tumor recurrence. The ocular globes and intraorbital soft tissues are symmetrically unremarkable. There is bilateral sinus disease, similar to the prior. MRI/Brain W/WO Contrast IMPRESSION: There is minimal bilateral white matter disease, similar to the prior. There is bilateral sinus disease, similar to the prior. There is homogeneous enhancement in the surgical bed at the pituitary fossa wit h no significant interval change or evidence of tumor recurrence. Reading Location: [facility]
== END | disposition home or self-care (01) ==
LOC: OPMRI 07:55
PROVIDERS: PCP Family Medicine
DX: D35.2 Benign neoplasm of pituitary gland (principal)
CPT/HCPCS: 70553; A9575

== ENCOUNTER → 2024-12-04 | Outpatient (CLI) | payer OTHER, SELFPAY ==
--- NOTE | 2024-12-04 16:45 | RAD_ITS ---
PROCEDURE: KNEE 4 OR MORE VIEWS 12/04/2024 REASON FOR EXAM: R KNEE PAIN TECHNIQUE: 4 view(s) of the right knee COMPARISON: None. FINDINGS: Mild tricompartmental changes of degenerative joint disease. Mild prepatellar/infrapatellar soft tissue edema and swelling. No fracture or dislocation is seen. No lytic or blastic bone lesion is identified. RAD/Knee 4 or More Views IMPRESSION: Mild prepatellar/infrapatellar soft tissue edema and swelling. Mild tricompartmental changes of degenerative joint disease. Reading Location: [facility]
== END | disposition home or self-care (01) ==
LOC: RAD 16:40
PROVIDERS: PCP Family Medicine; Referring Provider Nurse Practitioner Family; Visit Provider Nurse Practitioner Family
DX: M25.561 Pain in right knee (principal)
CPT/HCPCS: 73564

== ENCOUNTER → 2025-02-28 | Outpatient (CLI) | payer OTHER, SELFPAY | END | disposition home or self-care (01) | LOC: LABSPEC 09:23 | PROVIDERS: PCP Family Medicine; Visit Provider Family Medicine | DX: S01.20XA Unspecified open wound of nose, initial encounter (principal); X58.XXXA Exposure to other specified factors, initial encounter | CPT/HCPCS: 87070; 87205 ==

== ENCOUNTER → 2025-04-25 | Outpatient (CLI) | payer OTHER, SELFPAY | END | disposition home or self-care (01) | LOC: LAB 07:35 | PROVIDERS: PCP Family Medicine; Referring Provider Family Medicine; Visit Provider Family Medicine | DX: Z00.00 Encounter for general adult medical examination without abnormal findings (principal); N95.1 Menopausal and female climacteric states; R73.01 Impaired fasting glucose | CPT/HCPCS: 36415; 83036; 84443 ==

== ENCOUNTER → 2025-05-15 | Outpatient (CLI) | payer OTHER, SELFPAY ==
[2025-05-18 12:09] LABS: Age Gdln ACOG Testing 30-65 (.); HPV APTIMA, High Risk Negative (Negative)
== END | disposition home or self-care (01) ==
LOC: LABSPEC 18:00
PROVIDERS: PCP Family Medicine; Referring Provider Family Medicine; Visit Provider Family Medicine
DX: Z12.4 Encounter for screening for malignant neoplasm of cervix (principal)
CPT/HCPCS: 87624; 88175; G0145